=== PATIENT | female | born 1995 ===

== ENCOUNTER 2020-01-26 19:51 | Emergency (ER) | payer BC ==
[2020-01-26] MEDS ORDERED: Tetan/Diph/Pertus SYR(Tdap)* 0.5 ML SYR(BOOSTRIX) use SYR contains LATEX IM ONE (19:56)
[2020-01-26] MEDS ORDERED: Lidocaine 1% MPF 5 ML VIAL INJ ONE (20:02)
[2020-01-26 20:06] VITALS: BP 153/103
[2020-01-26] MEDS ORDERED: Mupirocin 2% OINT TUBE TOPICAL ONE (20:34)
[2020-01-26] MEDS ORDERED: Mupirocin 2% OINT TUBE TOPICAL SCH (21:00)
== END 2020-01-26 20:40 | disposition home or self-care (01) ==
LOC: UCEAST 19:51